=== PATIENT | male | born 1940 | race Caucasian/White ===

== ENCOUNTER 2018-09-09 01:01 | Outpatient (CLI) | payer MEDICARE, OTHER ==
[~2018-09-09 01:01] MED LIST: BACDS PO; CEPH-357 PO
== END 2018-09-09 23:59 | disposition home or self-care (01) ==
LOC: DIABETIC 01:01
PROVIDERS: ATTEND Specialist
DX: E11.9 Type 2 diabetes mellitus without complications (principal); Z79.84 Long term (current) use of oral hypoglycemic drugs
CPT/HCPCS: G0108